=== PATIENT | female | born 1970 | race Caucasian/White ===

== ENCOUNTER 2019-05-12 14:59 | Inpatient (IN) ==
[2019-05-12 16:07] LABS: Basophils # 0.1 10*3/uL (0.0-0.2); Basophils % 0.6 % (0.0-0.8); Eosinophils # 0.2 10*3/uL (0.0-0.87); Eosinophils % 1.1 % (0.00-10.9); Hematocrit 43.4 VOL% (35.7-47.0); Hemoglobin 14.6 GM/DL (12.0-16.0); Immature Granulocytes % 0.3 %; Immature Granulocytes Absolute 0.05 #; Lymphocytes # 4.1 10*3/uL (1.4-4.0); Lymphocytes % 28.4 % (21.3-54.2); Mean Corpuscular HGB Conc 33.6 GM/DL (32-36); Mean Corpuscular Volume 96.7 FL (87-102); Mean Platelet Volume 9.2 FL (9.6-12.0); Monocytes % 4.8 % (1.7-12.7); Neutrophils % 64.8 % (38.7-73.9); Platelet Count 301 T/CUMM (130-400); Red Blood Count 4.49 MC/CUMM (3.8-5.5); Red Cell Distribution Width 13.5 % (9.3-17.3); White Blood Count 14.4 T/CUMM (4-12)
[2019-05-12 16:17] LABS: INR 0.9; PT Patient Result 9.7 SECS (9.6-12.2); Partial Thromboplastin Time 27.5 SECS (20.8-36.0)
[2019-05-12 16:27] LABS: Alanine Aminotransferase 15 U/L (13-56); Albumin 3.8 G/DL (3.4-5.0); Alkaline Phosphatase 70 U/L (45-117); Aspartate Amino Transferase 15 U/L (0-37); Bilirubin,Total < 0.39 MG/DL (0.2-1.0); Blood Urea Nitrogen 10 MG/DL (7-18); Calcium 9.3 MG/DL (8.5-10.1); Estimated Glom Filtration Rate 103 ML/MIN; Glucose 91 MG/DL (74-106); Total Protein 7.9 G/DL (6.4-8.3)
[2019-05-12 16:29] LABS: Apearance,Urine Slightly Hazy (Clear); Bilirubin,Urine Negative (Negative); Blood, Urine Negative (Negative); Glucose,Urine (UA) Negative (Negative); Hyaline Casts,Urine 1 /LPF (0-3); Ketones,Urine 5 mg/dL (Negative); Mucus,Urine Few /LPF (Occasional); Nitrite,Urine Negative (Negative); Protein,Urine Negative; RBC,Urine 2 /HPF (0-4); Squamous Epithelial Cell,Urine Occasional /HPF (0-10); Urine Color Yellow (Yellow); Urine Specific Gravity 1.021 (1.001-1.035); WBC,Urine 1 /HPF (0-6)
[2019-05-12] MEDS ORDERED: ONDANSETRON 4 MG/2 ML VIAL IV STA (16:31)
[2019-05-12] MEDS ORDERED: HYDROmorphone 2 MG/1 ML VIAL IV STA (16:31)
[2019-05-12] MEDS ORDERED: ACETAMINOPHEN 325 MG TABLET PO PRN (18:03)
[2019-05-12 21:27] LABS: Cancer Antigen 19-9 3.8 U/ML (0-37); Carcinoembryonic Antigen 0.8 NG/ML (0.0-5.0)
[2019-05-12] MEDS: HYDROmorphone 2 MG/1 ML VIAL IV PRN (21:38)
[2019-05-12] MEDS: fentaNYL 25 MCG/HR PATCH TRANSDERM SCH (21:39)
[2019-05-12] MEDS: SODIUM CHLORIDE 0.9% 1,000 ML IV SCH (21:50)
[2019-05-13] MEDS: HYDROmorphone 2 MG/1 ML VIAL IV PRN ×5 (04:03→19:41)
[2019-05-13 04:54] LABS: Basophils % 0.3 % (0.0-0.8); Eosinophils # 0.2 10*3/uL (0.0-0.87); Eosinophils % 2.4 % (0.00-10.9); Hematocrit 39.1 VOL% (35.7-47.0); Hemoglobin 12.8 GM/DL (12.0-16.0); Immature Granulocytes % 0.3 %; Immature Granulocytes Absolute 0.03 #; Lymphocytes # 3.8 10*3/uL (1.4-4.0); Lymphocytes % 39.1 % (21.3-54.2); Mean Corpuscular HGB Conc 32.7 GM/DL (32-36); Mean Platelet Volume 9.5 FL (9.6-12.0); Monocytes % 5.5 % (1.7-12.7); Neutrophils % 52.4 % (38.7-73.9); Platelet Count 255 T/CUMM (130-400); Red Blood Count 3.95 MC/CUMM (3.8-5.5); Red Cell Distribution Width 13.5 % (9.3-17.3); White Blood Count 9.6 T/CUMM (4-12)
[2019-05-13 05:35] LABS: Calcium 8.2 MG/DL (8.5-10.1); Thyroid Stimulating Hormone 3.18 uIU/ml (0.358-3.74)
[2019-05-13 08:06] LABS: Immunoglobulin A (Chem) 220 MG/DL (70-400); Immunoglobulin G (Chem) 1130 MG/DL (700-1600); Immunoglobulin M (Chem) 137 MG/DL (40-230)
[2019-05-13] MEDS: SODIUM CHLORIDE 0.9% 1,000 ML IV SCH ×2 (08:16→20:34)
[2019-05-13] MEDS: PANTOPRAZOLE 40 MG TABLET PO SCH (08:16)
[2019-05-13 09:24] LABS: Albumin (SPE) 5.1 G/DL (3.2-5.3); Albumin (SPE) Rel % 64.3 %; Alpha 1 (SPE) 0.2 G/DL (0.1-0.4); Alpha 1 (SPE) Rel % 2.1 %; Alpha 2 (SPE) 0.8 G/DL (0.4-1.0); Alpha 2 (SPE) Rel % 10.2 %; Beta (SPE) 0.8 G/DL (0.5-1.1); Beta (SPE) Rel % 10.5 %; Gamma (SPE) Rel % 12.9 %
[2019-05-13] MEDS ORDERED: LIDOCAINE 1%/EPI INJ 20 ML VIAL ONE (09:51)
[2019-05-13 09:56] LABS: Immuno Free Light Chain Kappa 1.45 MG/DL (0.33-1.94); Immuno Free Light Chain Lambda 1.95 MG/DL (0.57-2.63); Immuno Free Light Chain Ratio 0.74 MG/DL (0.26-1.65)
[2019-05-13] MEDS ORDERED: LACTULOSE 20 GM/30 ML UDCUP PO PRN (17:59)
[2019-05-13] MEDS ORDERED: ONDANSETRON 4 MG/2 ML VIAL IV PRN (17:59)
[2019-05-13] MEDS ORDERED: PROMETHAZINE INJ 25 MG in SODIUM CHLORIDE 0.9% 50 ML IV PRN (17:59)
[2019-05-13] MEDS ORDERED: chlorproMAZINE INJ 25 MG in SODIUM CHLORIDE 0.9% 100 ML IV PRN (17:59)
[2019-05-13] MEDS ORDERED: MYLANTA/LIDO VISC 2:1 300 ML BOTTLE SWISH/SPIT PRN (17:59)
[2019-05-13] MEDS ORDERED: chlorproMAZINE 25 MG TABLET PO PRN (17:59)
[2019-05-13] MEDS ORDERED: TEMAZEPAM 7.5 MG CAPSULE PO PRN (17:59)
[2019-05-13] MEDS ORDERED: diphenhydrAMINE CAP 25 MG CAPSULE PO PRN (17:59)
[2019-05-13] MEDS ORDERED: ALPRAZolam 0.25 MG TABLET PO PRN (17:59)
[2019-05-13] MEDS ORDERED: guaiFENesin 200 MG/10 ML UDCUP PO PRN (17:59)
[2019-05-13] MEDS ORDERED: LOPERAMIDE 2 MG CAPSULE PO PRN ×2 (17:59)
[2019-05-13] MEDS ORDERED: chlorproMAZINE INJ 50 MG in SODIUM CHLORIDE 0.9% 100 ML IV PRN (17:59)
[2019-05-13] MEDS ORDERED: traMADol 50 MG TABLET PO PRN (17:59)
[2019-05-13] MEDS ORDERED: BENZTROPINE 2 MG/2 ML AMP IV PRN (17:59)
[2019-05-13] MEDS ORDERED: ALUMINUM/MAGNES/SIMETH MAX STR 30 ML UDCUP PO PRN (17:59)
[2019-05-13] MEDS ORDERED: MAGNESIUM HYDROXIDE SUSP 30 ML UDCUP PO PRN (17:59)
[2019-05-13] MEDS ORDERED: MYLANTA/LIDO VISC 2:1 300 ML BOTTLE SWISH/SWAL PRN (17:59)
[2019-05-14] MEDS: HYDROmorphone 2 MG/1 ML VIAL IV PRN ×5 (04:43→10:11)
[2019-05-14] MEDS: SODIUM CHLORIDE 0.9% 1,000 ML IV SCH (04:46)
[2019-05-14 05:11] LABS: Basophils % 0.3 % (0.0-0.8); Eosinophils # 0.3 10*3/uL (0.0-0.87); Eosinophils % 3.1 % (0.00-10.9); Hematocrit 37.8 VOL% (35.7-47.0); Hemoglobin 12.6 GM/DL (12.0-16.0); Immature Granulocytes % 0.5 %; Immature Granulocytes Absolute 0.04 #; Lymphocytes # 3.1 10*3/uL (1.4-4.0); Lymphocytes % 35.4 % (21.3-54.2); Mean Corpuscular HGB Conc 33.3 GM/DL (32-36); Mean Corpuscular Volume 98.4 FL (87-102); Mean Platelet Volume 9.7 FL (9.6-12.0); Monocytes % 6.2 % (1.7-12.7); Neutrophils % 54.5 % (38.7-73.9); Platelet Count 246 T/CUMM (130-400); Red Blood Count 3.84 MC/CUMM (3.8-5.5); Red Cell Distribution Width 13.4 % (9.3-17.3); White Blood Count 8.8 T/CUMM (4-12)
[2019-05-14 05:28] LABS: Calcium 7.9 MG/DL (8.5-10.1); Osmolality,Calculated 274.4 MOS/KG (273-304)
[2019-05-14] MEDS ORDERED: ceFAZolin 2,000 MG in PREMIX 1 EACH IV ONE (06:30)
[2019-05-14] MEDS ORDERED: BACITRACIN OINT 0.9 GM PACK TOP ONE (06:46)
[2019-05-14] MEDS ORDERED: TRANEXAMIC ACID 1,000 MG/10 ML VIAL ONE (07:56)
[2019-05-14 08:18] LABS: Total Protein 24 Hr Ur Result 136 MG/24HR (0-149.1); Total Volume,Urine 2730 ML (400-2000)
[2019-05-14] MEDS ORDERED: MORPHINE 4 MG/1 ML VIAL IV PRN (09:18)
[2019-05-14] MEDS ORDERED: LIDOCAINE 2% 5 ML VIAL ONE (09:41)
[2019-05-14] MEDS ORDERED: SEVOFLURANE 1 UNIT/15 MINUTE INH ONE (09:41)
[2019-05-14] MEDS ORDERED: propofoL 200 MG/20 ML VIAL IV ONE (09:41)
[2019-05-14] MEDS ORDERED: MIDAZOLAM 2 MG/2 ML VIAL ONE (09:42)
[2019-05-14] MEDS ORDERED: GLYCOPYRROLATE 0.4 MG/2 ML VIAL ONE (09:42)
[2019-05-14] MEDS ORDERED: fentaNYL 100 MCG/2 ML VIAL ONE (09:42)
[2019-05-14] MEDS ORDERED: ROCURONIUM 100 MG/10 ML VIAL IV ONE (09:42)
[2019-05-14] MEDS ORDERED: DEXAMETHASONE 4 MG/1 ML VIAL ONE (09:42)
[2019-05-14] MEDS ORDERED: ACETAMINOPHEN 1,000 MG/100 ML VIAL IV ONE (09:42)
[2019-05-14] MEDS ORDERED: NEOSTIGMINE 10 MG/10 ML VIAL ONE (09:42)
[2019-05-14] MEDS ORDERED: LACTATED RINGERS 1,000 ML IV ONE (09:42)
[2019-05-14] MEDS ORDERED: ONDANSETRON 4 MG/2 ML VIAL ONE ×2 (09:42→09:48)
[2019-05-14] MEDS ORDERED: PHENYLEPHRINE 1 MG/10 ML SYRINGE IV ONE (09:42)
[2019-05-14] MEDS ORDERED: HYDROmorphone 2 MG/1 ML VIAL ONE (09:48)
[2019-05-14] MEDS ORDERED: ONDANSETRON 4 MG/2 ML VIAL IV PRN (09:51)
[2019-05-14] MEDS ORDERED: MORPHINE 10 MG/1 ML VIAL ONE (10:22)
[2019-05-14] MEDS: MORPHINE 4 MG/1 ML VIAL IV PRN ×2 (10:24→20:58)
[2019-05-14] MEDS: KETOROLAC 30 MG/1 ML VIAL IV SCH ×3 (11:30→20:46)
[2019-05-14] MEDS: PANTOPRAZOLE 40 MG TABLET PO SCH (11:30)
[2019-05-14] MEDS: ceFAZolin 2,000 MG in PREMIX 1 EACH IV SCH ×2 (14:47→23:21)
[2019-05-14] MEDS ORDERED: CALCIUM CARBONATE CHEW 500 MG TABLET PO PRN (17:11)
[2019-05-14] MEDS: PROMETHAZINE 25 MG/1 ML VIAL IM PRN (19:41)
[2019-05-14] MEDS: DOCUSATE SODIUM 100 MG CAPSULE PO SCH (20:46)
[2019-05-14] MEDS: ONDANSETRON 4 MG/2 ML VIAL IV PRN (20:59)
[2019-05-15] MEDS: ONDANSETRON 4 MG/2 ML VIAL IV PRN ×2 (03:02→20:59)
[2019-05-15] MEDS: MORPHINE 4 MG/1 ML VIAL IV PRN ×4 (03:04→20:58)
[2019-05-15] MEDS: KETOROLAC 30 MG/1 ML VIAL IV SCH (03:05)
[2019-05-15] MEDS: FONDAPARINUX 2.5 MG/0.5 ML SYRINGE SUBCUT SCH (03:07)
[2019-05-15 05:57] LABS: Basophils % 0.2 % (0.0-0.8); Eosinophils % 0.2 % (0.00-10.9); Hematocrit 35.3 VOL% (35.7-47.0); Hemoglobin 11.5 GM/DL (12.0-16.0); Immature Granulocytes % 0.7 %; Immature Granulocytes Absolute 0.09 #; Lymphocytes # 1.9 10*3/uL (1.4-4.0); Lymphocytes % 15.6 % (21.3-54.2); Mean Corpuscular HGB Conc 32.6 GM/DL (32-36); Mean Corpuscular Volume 98.9 FL (87-102); Mean Platelet Volume 9.1 FL (9.6-12.0); Monocytes % 5.2 % (1.7-12.7); Neutrophils % 78.1 % (38.7-73.9); Platelet Count 231 T/CUMM (130-400); Red Blood Count 3.57 MC/CUMM (3.8-5.5); Red Cell Distribution Width 13.2 % (9.3-17.3); White Blood Count 12.4 T/CUMM (4-12)
[2019-05-15 06:30] LABS: Calcium 8.4 MG/DL (8.5-10.1); Osmolality,Calculated 274.5 MOS/KG (273-304)
[2019-05-15] MEDS: PROMETHAZINE 25 MG/1 ML VIAL IM PRN (07:55)
[2019-05-15] MEDS: DOCUSATE SODIUM 100 MG CAPSULE PO SCH ×2 (08:00→20:59)
[2019-05-15] MEDS: PANTOPRAZOLE 40 MG TABLET PO SCH (08:00)
[2019-05-15] MEDS: fentaNYL 25 MCG/HR PATCH TRANSDERM SCH (08:01)
[2019-05-15] MEDS: SODIUM CHLORIDE 0.9% 1,000 ML IV SCH ×2 (09:10→21:00)
[2019-05-16] MEDS: MORPHINE 4 MG/1 ML VIAL IV PRN ×6 (00:11→21:07)
[2019-05-16] MEDS: FONDAPARINUX 2.5 MG/0.5 ML SYRINGE SUBCUT SCH (03:26)
[2019-05-16] MEDS: SODIUM CHLORIDE 0.9% 1,000 ML IV SCH ×3 (04:34→23:54)
[2019-05-16 05:47] LABS: Basophils % 0.3 % (0.0-0.8); Eosinophils # 0.2 10*3/uL (0.0-0.87); Hematocrit 30.6 VOL% (35.7-47.0); Hemoglobin 10.1 GM/DL (12.0-16.0); Immature Granulocytes % 0.5 %; Immature Granulocytes Absolute 0.05 #; Lymphocytes # 3.1 10*3/uL (1.4-4.0); Lymphocytes % 32.9 % (21.3-54.2); Mean Corpuscular Volume 99.7 FL (87-102); Mean Platelet Volume 9.5 FL (9.6-12.0); Monocytes % 6.3 % (1.7-12.7); Platelet Count 210 T/CUMM (130-400); Red Blood Count 3.07 MC/CUMM (3.8-5.5); Red Cell Distribution Width 13.7 % (9.3-17.3); White Blood Count 9.5 T/CUMM (4-12)
[2019-05-16] MEDS: DOCUSATE SODIUM 100 MG CAPSULE PO SCH ×2 (09:24→21:03)
[2019-05-16] MEDS: PANTOPRAZOLE 40 MG TABLET PO SCH (09:24)
[2019-05-16 09:46] LABS: Breast Carcinoma Ag(CA 27.29) 14.2 U/mL (<=38.0)
[2019-05-17] MEDS: MORPHINE 4 MG/1 ML VIAL IV PRN ×3 (00:47→06:22)
[2019-05-17] MEDS: SODIUM CHLORIDE 0.9% 1,000 ML IV SCH (02:51)
[2019-05-17] MEDS: FONDAPARINUX 2.5 MG/0.5 ML SYRINGE SUBCUT SCH (03:28)
[2019-05-17 05:21] LABS: Basophils % 0.2 % (0.0-0.8); Eosinophils # 0.3 10*3/uL (0.0-0.87); Eosinophils % 2.6 % (0.00-10.9); Hematocrit 29.6 VOL% (35.7-47.0); Hemoglobin 9.7 GM/DL (12.0-16.0); Immature Granulocytes % 0.6 %; Immature Granulocytes Absolute 0.06 #; Lymphocytes # 2.4 10*3/uL (1.4-4.0); Lymphocytes % 23.8 % (21.3-54.2); Mean Corpuscular HGB Conc 32.8 GM/DL (32-36); Mean Corpuscular Volume 98.3 FL (87-102); Mean Platelet Volume 9.4 FL (9.6-12.0); Monocytes % 6.1 % (1.7-12.7); Neutrophils % 66.7 % (38.7-73.9); Platelet Count 206 T/CUMM (130-400); Red Blood Count 3.01 MC/CUMM (3.8-5.5); Red Cell Distribution Width 13.5 % (9.3-17.3); White Blood Count 10.1 T/CUMM (4-12)
[2019-05-17 06:43] LABS: 24 Hr Protein (Bench) 136 MG/24HR (0-149.1)
[2019-05-17 07:54] VITALS: BP 121/60
[2019-05-17] MEDS: DOCUSATE SODIUM 100 MG CAPSULE PO SCH (08:42)
[2019-05-17] MEDS: PANTOPRAZOLE 40 MG TABLET PO SCH (08:43)
[2019-05-17 10:12] LABS: Estradiol 32.6 PG/ML; Follicle Stimulating Hormone 4.4 MIU/ML; Luteinizing Hormone 1.6 MIU/ML
== END 2019-05-17 11:40 | disposition home health service (06) | DRG 482 ==
LOC: N.ED 14:59 → SUATTDRO 18:02 → N.EDINP 18:02 → SUPCPDRO 18:02 → N.4E 18:35 → N.3E 05-14 10:59
PROVIDERS: ADMIT Internal Medicine; ATTEND Internal Medicine Geriatric Medicine

== ENCOUNTER 2019-06-27 09:04 | Inpatient (IN) ==
[2019-06-27] MEDS ORDERED: SODIUM CHLORIDE 0.9% 1,000 ML IV STA (09:20)
[2019-06-27] MEDS ORDERED: ONDANSETRON 4 MG/2 ML VIAL IV STA (09:20)
[2019-06-27] MEDS ORDERED: HYDROmorphone 2 MG/1 ML VIAL IV STA ×2 (09:21→11:59)
[2019-06-27] MEDS ORDERED: PIPERACILLIN/TAZOBACTAM 3,375 MG in SODIUM CHLORIDE 0.9% 100 ML IV STA (09:21)
[2019-06-27 09:34] LABS: Basophils % 0.5 % (0.0-0.8); Eosinophils # 0.1 10*3/uL (0.0-0.87); Eosinophils % 2.4 % (0.00-10.9); Hematocrit 41.3 VOL% (35.7-47.0); Hemoglobin 13.8 GM/DL (12.0-16.0); Immature Granulocytes % 0.5 %; Immature Granulocytes Absolute 0.02 #; Lymphocytes # 0.8 10*3/uL (1.4-4.0); Lymphocytes % 19.7 % (21.3-54.2); Mean Corpuscular HGB Conc 33.4 GM/DL (32-36); Mean Platelet Volume 9.1 FL (9.6-12.0); Monocytes % 7.1 % (1.7-12.7); Neutrophils % 69.8 % (38.7-73.9); Platelet Count 247 T/CUMM (130-400); Red Cell Distribution Width 12.4 % (9.3-17.3); White Blood Count 4.2 T/CUMM (4-12)
[2019-06-27 09:47] LABS: INR 0.9; Partial Thromboplastin Time 27.1 SECS (20.8-36.0)
[2019-06-27 09:49] LABS: Albumin 3.9 G/DL (3.4-5.0); Bilirubin,Total 0.4 MG/DL (0.2-1.0); Calcium 9.5 MG/DL (8.5-10.1); Osmolality,Calculated 270.1 MOS/KG (273-304); Total Protein 8.1 G/DL (6.4-8.3)
[2019-06-27] MEDS ORDERED: ONDANSETRON 4 MG/2 ML VIAL IV PRN (12:05)
[2019-06-27] MEDS ORDERED: hydrALAZINE 20 MG/1 ML VIAL IV PRN (12:05)
[2019-06-27] MEDS ORDERED: ACETAMINOPHEN 325 MG TABLET PO PRN (12:05)
[2019-06-27] MEDS ORDERED: DOCUSATE SODIUM 100 MG CAPSULE PO PRN (12:05)
[2019-06-27] MEDS ORDERED: ALBUTEROL/IPRATROPIUM 3 ML NEB RESP TX PRN (12:05)
[2019-06-27] MEDS ORDERED: POTASSIUM CHLORIDE RIDER 10 MEQ in PREMIX 1 EACH IV PRN (12:10)
[2019-06-27 13:10] LABS: Risk Ratio 3.2; Thyroid Stimulating Hormone 0.584 uIU/ml (0.358-3.74); VLDL CHOLESTEROL 17.8 MG/DL
[2019-06-27 13:14] LABS: Hemoglobin 12.3 GM/DL (12.0-16.0)
[2019-06-27] MEDS ORDERED: traZODone 50 MG TABLET PO PRN (13:37)
[2019-06-27] MEDS ORDERED: ONDANSETRON 4 MG TABLET PO PRN (13:37)
[2019-06-27] MEDS ORDERED: oxyCODONE IR 5 MG TABLET PO PRN (13:37)
[2019-06-27] MEDS ORDERED: fentaNYL 50 MCG/HR PATCH TRANSDERM SCH (14:00)
[2019-06-27] MEDS: MORPHINE IR 15 MG TABLET PO PRN ×2 (14:15→20:40)
[2019-06-27] MEDS ORDERED: POTASSIUM CHLORIDE 20 MEQ/15 ML UDCUP PO ONE ×2 (14:16→23:00)
[2019-06-27] MEDS: SODIUM CHLORIDE 0.9% 1,000 ML IV SCH (14:18)
[2019-06-27] MEDS: PANTOPRAZOLE 40 MG VIAL IV SCH (17:52)
[2019-06-27] MEDS: PIPERACILLIN/TAZOBACTAM 3,375 MG in SODIUM CHLORIDE 0.9% 100 ML IV SCH (18:01)
[2019-06-27 20:40] LABS: Apearance,Urine CLEAR (Clear); Bilirubin,Urine Negative (Negative); Blood, Urine Negative (Negative); Glucose,Urine (UA) Negative (Negative); Ketones,Urine 80 mg/dL (Negative); Mucus,Urine Occasional /LPF (Occasional); Nitrite,Urine Negative (Negative); Protein,Urine Negative; RBC,Urine 2 /HPF (0-4); Squamous Epithelial Cell,Urine Occasional /HPF (0-10); Urine Color Yellow (Yellow); Urine Specific Gravity 1.044 (1.001-1.035); Urine Urobilinogen < 2.0 EU/DL (0.2-1.0); WBC,Urine 1 /HPF (0-6)
[2019-06-27] MEDS: GABAPENTIN 600 MG TABLET PO SCH (20:40)
[2019-06-27] MEDS ORDERED: diphenhydrAMINE CAP 25 MG CAPSULE PO PRN (22:21)
[2019-06-27 22:34] LABS: Hematocrit 32.8 VOL% (35.7-47.0); Hemoglobin 11.2 GM/DL (12.0-16.0)
[2019-06-28] MEDS: PIPERACILLIN/TAZOBACTAM 3,375 MG in SODIUM CHLORIDE 0.9% 100 ML IV SCH ×3 (02:52→18:32)
[2019-06-28 04:08] LABS: Basophils % 0.3 % (0.0-0.8); Eosinophils # 0.1 10*3/uL (0.0-0.87); Eosinophils % 4.2 % (0.00-10.9); Hematocrit 33.6 VOL% (35.7-47.0); Hemoglobin 10.9 GM/DL (12.0-16.0); Immature Granulocytes % 0.6 %; Immature Granulocytes Absolute 0.02 #; Lymphocytes # 1.4 10*3/uL (1.4-4.0); Lymphocytes % 40.4 % (21.3-54.2); Mean Corpuscular HGB Conc 32.4 GM/DL (32-36); Mean Corpuscular Volume 99.1 FL (87-102); Mean Platelet Volume 8.9 FL (9.6-12.0); Monocytes % 9.5 % (1.7-12.7); Platelet Count 186 T/CUMM (130-400); Red Blood Count 3.39 MC/CUMM (3.8-5.5); Red Cell Distribution Width 12.8 % (9.3-17.3); White Blood Count 3.4 T/CUMM (4-12)
[2019-06-28 04:34] LABS: Calcium 7.3 MG/DL (8.5-10.1); Osmolality,Calculated 276.4 MOS/KG (273-304)
[2019-06-28 04:41] LABS: Band Neutrophils 2 % (0-10); Eosinophils 2 % (0-10); Lymphocytes 36 % (20-55); Segmented Neutrophils 53 % (50-85); Total Cells Counted 100
[2019-06-28 04:42] LABS: Hypochromasia Slight
[2019-06-28 04:43] LABS: Macrocytosis Slight; Platelet Estimate Adequate
[2019-06-28 06:54] LABS: Hematocrit 32.8 VOL% (35.7-47.0)
[2019-06-28] MEDS ORDERED: PROMETHAZINE INJ 25 MG in SODIUM CHLORIDE 0.9% 50 ML IV PRN (07:35)
[2019-06-28] MEDS: MORPHINE IR 15 MG TABLET PO PRN ×2 (07:54→17:57)
[2019-06-28] MEDS ORDERED: POTASSIUM CHLORIDE 20 MEQ/15 ML UDCUP PO ONE (08:16)
[2019-06-28] MEDS ORDERED: INFLUENZA VIRUS VACCINE 0.5 ML SYRINGE IM ONE (09:00)
[2019-06-28] MEDS ORDERED: Palbociclib [Ibrance] 100 MG PO SCH (09:00)
[2019-06-28] MEDS: PANTOPRAZOLE 40 MG VIAL IV SCH (09:06)
[2019-06-28] MEDS: BISACODYL 5 MG TABLET PO SCH ×3 (09:14→23:57)
[2019-06-28] MEDS: MORPHINE 4 MG/1 ML VIAL IV PRN ×2 (12:15→20:03)
[2019-06-28 14:33] LABS: Hematocrit 33.2 VOL% (35.7-47.0)
[2019-06-28 15:53] LABS: Apearance,Urine CLEAR (Clear); Bacteria,Urine Occasional /HPF (Few); Bilirubin,Urine Negative (Negative); Blood, Urine Negative (Negative); Glucose,Urine (UA) Negative (Negative); Ketones,Urine 20 mg/dL (Negative); Mucus,Urine Occasional /LPF (Occasional); Nitrite,Urine Negative (Negative); Protein,Urine Negative; RBC,Urine 1 /HPF (0-4); Squamous Epithelial Cell,Urine Occasional /HPF (0-10); Urine Color Yellow (Yellow); Urine Specific Gravity 1.023 (1.001-1.035); Urine Urobilinogen < 2.0 EU/DL (0.2-1.0); WBC,Urine 2 /HPF (0-6)
[2019-06-28] MEDS ORDERED: POLYETHYLENE GLYCOL POWDER 255 GM BOTTLE PO ONE (17:00)
[2019-06-28] MEDS ORDERED: CALCIUM GLUCONATE 1,000 MG in SODIUM CHLORIDE 0.9% 100 ML IV ONE (17:00)
[2019-06-28] MEDS ORDERED: MAGNESIUM CITRATE 300 ML BOTTLE PO ONE (21:00)
[2019-06-28] MEDS: GABAPENTIN 600 MG TABLET PO SCH (21:09)
[2019-06-28] MEDS: SODIUM CHLORIDE 0.9% 1,000 ML IV SCH (22:31)
[2019-06-29] MEDS: PIPERACILLIN/TAZOBACTAM 3,375 MG in SODIUM CHLORIDE 0.9% 100 ML IV SCH ×2 (02:39→09:23)
[2019-06-29 05:38] LABS: Basophils % 0.6 % (0.0-0.8); Eosinophils # 0.2 10*3/uL (0.0-0.87); Eosinophils % 4.7 % (0.00-10.9); Hematocrit 33.7 VOL% (35.7-47.0); Immature Granulocytes % 0.3 %; Immature Granulocytes Absolute 0.01 #; Lymphocytes # 1.1 10*3/uL (1.4-4.0); Lymphocytes % 33.8 % (21.3-54.2); Mean Corpuscular HGB Conc 32.6 GM/DL (32-36); Mean Corpuscular Volume 100.6 FL (87-102); Mean Platelet Volume 9.4 FL (9.6-12.0); Monocytes % 8.9 % (1.7-12.7); Neutrophils % 51.7 % (38.7-73.9); Platelet Count 182 T/CUMM (130-400); Red Blood Count 3.35 MC/CUMM (3.8-5.5); White Blood Count 3.4 T/CUMM (4-12)
[2019-06-29 06:04] LABS: Calcium 7.7 MG/DL (8.5-10.1); Osmolality,Calculated 272.5 MOS/KG (273-304)
[2019-06-29] MEDS ORDERED: GLYCOPYRROLATE 0.4 MG/2 ML VIAL ONE (09:00)
[2019-06-29] MEDS ORDERED: PHENYLEPHRINE 1 MG/10 ML SYRINGE IV ONE (09:00)
[2019-06-29] MEDS ORDERED: LIDOCAINE 2% 5 ML VIAL ONE (09:00)
[2019-06-29] MEDS ORDERED: propofoL 200 MG/20 ML VIAL IV ONE (09:00)
[2019-06-29] MEDS: PANTOPRAZOLE 40 MG VIAL IV SCH (09:21)
[2019-06-29] MEDS: MORPHINE IR 15 MG TABLET PO PRN (09:21)
[2019-06-29] MEDS: SODIUM CHLORIDE 0.9% 1,000 ML IV SCH (09:31)
[2019-06-29 11:42] VITALS: BP 104/40
== END 2019-06-29 13:12 | disposition home or self-care (01) | DRG 394 ==
LOC: N.EDINP 09:04 → N.ED 09:04 → N.4E 12:38
PROVIDERS: ADMIT Internal Medicine; ATTEND Internal Medicine